=== PATIENT | female | born 1995 ===

== ENCOUNTER 2017-11-19 11:05 | Emergency (ER) | payer OTHER ==
[2017-11-19 11:39] VITALS: RESP 20; O2SAT 98
[2017-11-19] MEDS: Sodium Chloride 0.9% 1,000 ML IV SCH ×3 (12:26→14:48)
[2017-11-19 12:31] LABS: BASO # 0.1 K/uL (0.0-0.2); BASO % 0.6 % (0.0-2.0); EOS # 0.1 K/uL (0.0-0.7); HEMOGLOBIN 14.3 g/dL (12.0-16.0); LYMPH # 3.1 K/uL (1.0-4.3); LYMPH % 22.9 % (20.0-40.0); MEAN CELL VOLUME 88.7 fl (81.0-99.0); MEAN CORPUSCULAR HEMOGLOBIN 30.4 pg (27.0-31.0); MEAN CORPUSCULAR HGB CONC 34.3 g/dL (33.0-37.0); MEAN PLATELET VOLUME 8.3 fl (7.2-11.7); MONO # 0.9 K/uL (0.0-0.8); MONO % 6.4 % (0.0-10.0); NEUT # 9.4 K/uL (1.8-7.0); NEUT % 69.1 % (50.0-75.0); RBC 4.69 Mil/uL (3.80-5.20); RED CELL DISTRIBUTION WIDTH 14.1 % (11.5-14.5); WHITE BLOOD COUNT 13.6 K/uL (4.8-10.8)
--- NOTE | 2017-11-19 12:33 | ED PDOC ---
HPI: Abdomen Time Seen by Provider: 11/19/17 11:46 Chief Complaint (Nursing): Abdominal Pain Chief Complaint (Provider): Abdominal Pain History Per: Patient History/Exam Limitations: no limitations Onset/Duration Of Symptoms: Intermittent Episodes (x3 weeks) Current Symptoms Are (Timing): Still Present Additional Complaint(s): 22 year old female, , presents to the emergency department with a complaint of mild left lower abdominal pain associated with intermittent nausea and vomiting ongoing for 3 weeks. Patient denied any urinary complaints, vaginal bleeding or discharge. LMP: 10/03/17. PMD: none provided Past Medical History Reviewed: Historical Data, Nursing Documentation, Vital Signs Vital Signs: Last Vital Signs Temp 98.5 F 11/19/17 14:30 Pulse 80 11/19/17 14:30 Resp 20 11/19/17 14:30 BP 120/70 11/19/17 14:30 Pulse Ox 98 11/19/17 14:30 - Medical History PMH: No Chronic Diseases - Surgical History Surgical History: No Surg Hx - Family History Family History: States: Unknown Family Hx - Social History Current smoker - smoking cessation education provided: No Alcohol: Social Drugs: Denies - Immunization History Hx Tetanus Toxoid Vaccination: No Hx Influenza Vaccination: No Hx Pneumococcal Vaccination: No - Home Medications Home Medications: Ambulatory Orders Medication Instructions Recorded Multivit/Folic Acid/I 1 tab PO DAILY #30 tab 11/19/17 [ Plus] - Allergies Allergies/Adverse Reactions: Allergies Allergy/AdvReac Type Severity Reaction Status Date / Time No Known Allergies Allergy Verified 11/19/17 11:34 Review of Systems ROS Statement: Except As Marked, All Systems Reviewed And Found Negative Gastrointestinal: Positive for: Nausea, Vomiting, Abdominal Pain (lower left) Genitourinary Female: Negative for: Dysuria, Hematuria, Vaginal Discharge, Vaginal Bleeding Physical Exam - Reviewed Nursing Documentation Reviewed: Yes Vital Signs Reviewed: Yes - Physical Exam Appears: Positive for: Non-toxic, No Acute Distress Head Exam: Positive for: ATRAUMATIC, NORMAL INSPECTION, NORMOCEPHALIC Cardiovascular/Chest: Positive for: Regular Rate, Rhythm, Chest Non Tender Respiratory: Positive for: Normal Breath Sounds. Negative for: Decreased Breath Sounds, Respiratory Distress Gastrointestinal/Abdominal: Positive for: Normal Exam, Bowel Sounds (present; within normal limits), Soft. Negative for: Tenderness Back: Positive for: Normal Inspection. Negative for: L CVA Tenderness, R CVA Tenderness Extremity: Positive for: Normal ROM (upper/lower) Neurologic/Psych: Positive for: Alert, Oriented - Laboratory Results Result Diagrams: 11/19/17 11:50 - ECG O2 Sat by Pulse Oximetry: 98 (RA) Pulse Ox Interpretation: Normal Medical Decision Making Medical Decision Making: Initial Impression: LLQ pain with nausea and vomiting Initial Plan: * BMP * BETA-HCG * Lipase * Urine * CBC * NS 1,000ml IV per 1,000mls/hr * Urine culture * UA Time: 1206 --Urine is positive for . --US transvaginal ordered. Time: 1400 --US transvag FINDINGS: Cardiac activity: Present Rate: 125 BPM Measurements: [place] rump length: 0.35 cm Gestational age based on CRL 6 weeks Gestational age 5 weeks 1 day based on gestational sac measurement 1.04 cm Gestational age derived from LMP: 6 weeks 6 days FIFI based on LMP: 07/09/2018 FIFI based on biometry: 07/18/2018 Gestational concordance documented Yolk sac identified Uterus: Unremarkable. No Cervical abnormalities: Negative examination for cervical dilatation or effacement. Closed cervix measuring cm Subchorionic hemorrhage: None UTERUS: 6.1 x 7.1 x 12.8 cm. ADNEXA: Right: 2.3 x 3.1 x 4.1 cm. Sub cm cyst presumed corpus luteum cyst. Normal Doppler arterial waveform documented. Left: 1.7 x 3.2 x 3.5 cm. Normal Doppler arterial waveform documented Fluid in the cul-de-sac: Trace IMPRESSION: 5 weeks 4 days live intrauterine gestation. Time: 1406 --Upon provider reevaluation, results were discussed with patient. Patient is medically stable and requires no further treatment in the ED at this time. She will be discharged home with Rx for Plus. Counseling was provided and all questions were answered regarding diagnosis and need for follow [facility] for further evaluation. There is agreement to discharge plan. Return if symptoms persist or worsen. Clinical Impression: 5 weeks gestration of Scribe Attestation: Documented by Inge Jasmine, acting as a scribe for Diego Roy DO. Provider Scribe Attestation: All medical record entries made by the Scribe were at my direction and personally dictated by me. I have reviewed the chart and agree that the record accurately reflects my personal performance of the history, physical exam, medical decision making, and the department course for this patient. I have also personally directed, reviewed, and agree with the discharge instructions and disposition. Disposition - Clinical Impression Clinical Impression: 5 weeks gestation of - Patient ED Disposition Is Patient to be Admitted: No Counseled Patient/Family Regarding: Studies Performed, Diagnosis, Need For Followup - Disposition Referrals: [facility] [Outside] [facility] [Outside] Disposition: Routine/Home Disposition Time: 14:06 Condition: GOOD Additional Instructions: Thank you for letting us take care of you today. The emergency medical care you received today was directed at your acute symptoms. If you were prescribed any medication, please fill it and take as directed. It may take several days for your symptoms to resolve. Return to the Emergency Department if your symptoms worsen, do not improve, or if you have any other problems. Please contact your doctor or call one of the physicians/clinics you have been referred to that are listed on the Patient Visit Information form that is included in your discharge packet. Bring any paperwork you were given at discharge with you along with any medications you are taking to your follow up visit. Our treatment cannot replace ongoing medical care by a primary care provider (PCP) outside of the emergency department. Thank you for allowing the [facility] team to be part of your care today. Follow up with your [employer] doctor this week for further management. Frank por dejarnos atenderlo hoy. La atencin mdica de emergencia que recibi hoy estaba dirigida a liz sntomas agudos. Si le prescribieron algn medicamento, llnelo y tome segn las indicaciones. Liz sntomas pueden tardar varios heaton en resolverse. Regrese al Departamento de Emergencia si liz s ntomas empeoran, no mejoran o si tiene algn otro problema. Comunquese con davis mdico o llame a abdiaziz de los mdicos / clnicas a los que whitney sido referido que figura en el formulario de Informacin de visita del paciente que se incluye en davis paquete de elian. Traiga todos los documentos que recibi al momento del elian junto con los medicamentos que est tomando en davis visita de seguimiento. Nuestro tratamiento no puede reemplazar la atencin mdica en curso por parte de un proveedor de atencin primaria (PCP) fuera del departamento de emergencias. Frank por permitir que el equipo de [facility] sea parte de davis cuidado hoy. Janet un seguimiento con davis obstetra / gineclogo esta semana para guido mayor administracin. Prescriptions: Multivit/Folic Acid/I [ Plus] 1 tab PO DAILY #30 tab Instructions: Nausea and Vomiting of (DC) Print Language: ENGLISH
[2017-11-19 12:48] LABS: SQUAMOUS EPITHIAL 12 /hpf (0-5); URINE BACTERIA RARE (<OCC); URINE BILIRUBIN NEGATIVE (NEGATIVE); URINE BLOOD NEGATIVE (NEGATIVE); URINE CLARITY CLOUDY (Clear); URINE COLOR YELLOW (YELLOW); URINE GLUCOSE (UA) NEG (Normal); URINE LEUKOCYTE ESTERASE MOD Leu/uL (Negative); URINE PROTEIN NEGATIVE (NEGATIVE); URINE UROBILINOGEN 0.2-1.0 mg/dL (0.2-1.0)
--- NOTE | 2017-11-19 14:02 | US ---
PROCEDURE: First trimester ultrasound HISTORY: LLQ tenderness COMPARISON: None available. TECHNIQUE: Standard protocol for this study/examination. FINDINGS: LMP: 10/02/2017 Prior examinations from the current : None TECHNIQUE: Real-time 2D imaging, duplex and color Doppler. FINDINGS: Cardiac activity: Present Rate: 125 BPM Measurements: [place] rump length: 0.35 cm Gestational age based on CRL 6 weeks Gestational age 5 weeks 1 day based on gestational sac measurement 1.04 cm Gestational age derived from LMP: 6 weeks 6 days FIFI based on LMP: 07/09/2018 FIFI based on biometry: 07/18/2018 Gestational concordance documented Yolk sac identified Uterus: Unremarkable. No Cervical abnormalities: Negative examination for cervical dilatation or effacement. Closed cervix measuring cm Subchorionic hemorrhage: None UTERUS: 6.1 x 7.1 x 12.8 cm. ADNEXA: Right: 2.3 x 3.1 x 4.1 cm. Sub cm cyst presumed corpus luteum cyst. Normal Doppler arterial waveform documented. Left: 1.7 x 3.2 x 3.5 cm. Normal Doppler arterial waveform documented Fluid in the cul-de-sac: Trace IMPRESSION: 5 weeks 4 days live intrauterine gestation.
[2017-11-19 14:31] VITALS: BP 120/70; PULSE 80; TEMP 98.5
== END 2017-11-19 14:31 | disposition home or self-care (01) ==
LOC: H.ER 11:05
DX: O21.9 Vomiting of pregnancy, unspecified (principal); O26.891 Other specified pregnancy related conditions, first trimester; Z3A.01 Less than 8 weeks gestation of pregnancy
CPT/HCPCS: 76817; 81003; 81025; 84702; 85025; 87086; 96360; 96361; 99283; J7040